=== PATIENT | female | born 1965 | race Caucasian/White ===

== ENCOUNTER → 2020-01-02 | Outpatient (CLI) | payer BC, OTHER ==
--- NOTE | 2020-01-02 10:41 | 2DMMODE ---
[facility] [place] [address] 2 D/M-MODE ECHOCARDIOGRAM Name: GORAN ATKINSON [id number] Admission: 01/02/20 Attend Phys: Huber Mascorro MD Discharge: Date of : 67 Report #: [id number] THIS REPORT FOR: cc: FAM - No family physician/PCP FAM - No family physician/PCP Huber Mascorro MD ~ APPROVED REPORT Study performed: 01/02/2020 09:40:37 EXAM: Comprehensive 2D, Doppler, and color-flow Echocardiogram Patient Location: Out-Patient Status: routine BSA: 1.64 HR: 69 bpm BP: 98/70 mmHg Rhythm: NSR Indications Chest Pain 2D Dimensions RVDd: 26.88 mm IVSd: 8.96 (7-11mm) LVOT Diam: 19.86 (18-24mm) LVDd: 38.91 mm PWd: 9.09 (7-11mm) Ascending Ao: 26.75 (22-36mm) LVDs: 23.75 (25-40mm) Aortic Root: 28.56 mm Volumes Left Atrial Volume (Systole) Single Plane 4CH: 22.79 mL Single Plane 2CH: 28.12 mL LA ESV Index: 17.00 mL/m2 Aortic Valve AoV Peak Neto.: 1.25 m/s AO Peak Gr.: 6.24 mmHg LVOT Max P.27 mmHg LVOT Max V: 1.03 m/s ROXY Vmax: 2.56 cm2 Mitral Valve E/A Ratio: 1.3 MV Decel. Time: 197.03 ms [facility] [address] [place] [address] 2 D/M-MODE ECHOCARDIOGRAM Name: GORAN ATKINSON Room #: REG [facility]#: [id number] Admission: 01/02/20 Attend Phys: Huber Mascorro MD Discharge: Date of : 67 Report #: [id number] MV E Max Neto.: 0.73 m/s MV A Neto.: 0.58 m/s MV PHT: 57.14 ms IVRT: 76.12 ms Pulmonary Valve PV Peak Neto.: 0.81 m/s PV Peak Gr.: 2.62 mmHg Pulmonary Vein P Vein S: 0.47 m/s P Vein A: 0.33 m/s P Vein D: 0.43 m/s P Vein A Dur.: 152.2 msec P Vein S/D Ratio: 1.09 Tricuspid Valve TR Peak Neto.: 1.75 m/s RAP Estimate: 5.00 mmHg TR Peak Gr.: 12.25 mmHg PA Pressure: 17.00 mmHg Left Ventricle The left ventricle is normal size. There is normal LV segmental wall motion. There is normal left ventricular wall thickness. Left ventricular systolic function is normal. LVEF is 60-65%. The left ventricular diastolic function is normal. Right Ventricle The right ventricle is normal size. The right ventricular systolic function is normal. Atria The left atrium size is normal. The right atrium size is normal. Aortic Valve The aortic valve is normal in structure. No aortic regurgitation is present. There is no aortic valvular stenosis. Mitral Valve The mitral valve is normal in structure. Trace mitral regurgitation. No evidence of mitral valve stenosis. Tricuspid Valve The tricuspid valve is normal in structure. Trace tricuspid regurgitation. Estimated PAP is <20mmHg. Pulmonic Valve The pulmonary valve is normal in structure. Trace pulmonic [facility] [place] [address] 2 D/M-MODE ECHOCARDIOGRAM Name: GORAN ATKINSON Room #: REG [facility]#: [id number] Admission: 01/02/20 Attend Phys: Huber Mascorro MD Discharge: Date of : 67 Report #: [id number] regurgitation. Great Vessels The aortic root is normal in size. The ascending aorta is normal in size. IVC is normal in size and collapses >50% with inspiration. Pericardium There is no pericardial effusion. <Conclusion> The left ventricle is normal size. There is normal left ventricular wall thickness. Left ventricular systolic function is normal. The right ventricle is normal size. The left atrium size is normal. The aortic valve is normal in structure. Trace mitral regurgitation. Trace tricuspid regurgitation. Estimated PAP is <20mmHg. <ELECTRONICALLY SIGNED> By: Huber Mascorro MD 01/02/20 [id number] [id number] Huber Mascorro MD /INF
== END ==
LOC: CV 09:23
PROVIDERS: ATTEND Internal Medicine Cardiovascular Disease
DX: R07.9 Chest pain, unspecified (principal)

== ENCOUNTER → 2020-01-02 | Outpatient (CLI) | payer BC, OTHER | END | disposition home or self-care (01) | LOC: SJCVCIMAG 11:53 | PROVIDERS: ATTEND Internal Medicine Cardiovascular Disease | DX: R07.9 Chest pain, unspecified (principal); I08.1 Rheumatic disorders of both mitral and tricuspid valves ==

== ENCOUNTER → 2020-01-02 | Outpatient (CLI) | payer OTHER | LOC: CAT 13:26 | PROVIDERS: ATTEND Internal Medicine Cardiovascular Disease | DX: Z13.6 Encounter for screening for cardiovascular disorders (principal); I25.10 Atherosclerotic heart disease of native coronary artery without angina pectoris; E78.00 Pure hypercholesterolemia, unspecified ==